=== PATIENT | male | born 1985 | race African-American/Black ===

== ENCOUNTER 2019-09-07 23:27 | Emergency (ER) | payer OTHER ==
[~2019-09-07] VITALS: Ht 172.7 cm; Wt 72.7 kg
[2019-09-08 02:36] VITALS: BP 148/99
== END 2019-09-08 03:30 | disposition home or self-care (01) ==
LOC: EMS 23:29
DX: S86.011A Strain of right Achilles tendon, initial encounter (principal); Z91.013 Allergy to seafood; X58.XXXA Exposure to other specified factors, initial encounter; Y93.67 Activity, basketball; Y92.89 Other specified places as the place of occurrence of the external cause; Y99.8 Other external cause status
CPT/HCPCS: 29515